=== PATIENT | female | born 1980 | race Caucasian/White ===

== ENCOUNTER 2017-04-12 14:29 | Emergency (ER) | payer BC ==
[2017-04-12 15:19] LABS: HEMOGLOBIN 12.2 gm/dl (12.3-15.3); RED BLOOD COUNT 4.4 M/UL (4.00-5.10); WHITE BLOOD COUNT 9.7 K/UL (4.5-11.0)
[2017-04-12 15:49] LABS: BUN/CREATININE RATIO 23 (0-10)
== END 2017-04-12 17:00 | disposition home or self-care (01) ==
LOC: ER1 14:29
PROVIDERS: Family Medicine
DX: R07.1 Chest pain on breathing (principal)
CPT/HCPCS: 36415; 71010; 80053; 82550; 82553; 83874; 84484; 85025; 85379; 93005; 96374; 99285; J1885

== ENCOUNTER → 2021-06-16 | Outpatient (CLI) | payer BC ==
[~2021-06-16] MED LIST: ZOFRAN ODT 4 MG4 MG PO
== END ==
LOC: MAMO 10:38
DX: Z12.31 Encounter for screening mammogram for malignant neoplasm of breast (principal)
CPT/HCPCS: 77063; 77067

== ENCOUNTER → 2021-07-14 | Outpatient (CLI) | payer BC | LOC: MAMO 13:30 | DX: R92.8 Other abnormal and inconclusive findings on diagnostic imaging of breast (principal); N63.22 Unspecified lump in the left breast, upper inner quadrant | CPT/HCPCS: 76641-LT; 77065 ==

== ENCOUNTER 2021-10-18 09:51 | Emergency (ER) | payer BC ==
[2021-10-18 12:06] LABS: HEMOGLOBIN 13.1 gm/dl (12.3-15.3); RED BLOOD COUNT 4.64 M/UL (4.00-5.10); WHITE BLOOD COUNT 7.3 K/UL (4.5-11.0)
[2021-10-18 12:31] LABS: BUN/CREATININE RATIO 22 (0-10)
[2021-10-18] MEDS ORDERED: NAPROSYN500 MG PO (15:22)
== END 2021-10-18 15:25 | disposition home or self-care (01) ==
LOC: ER1 09:51
PROVIDERS: Physician Assistant
DX: E27.9 Disorder of adrenal gland, unspecified (principal); K59.00 Constipation, unspecified
CPT/HCPCS: 80053; 81001; 83690; 84703; 85025; 96374; 99284; J1885; Q9967

== ENCOUNTER → 2021-11-03 | Outpatient (CLI) | payer BC ==
[~2021-11-03] MED LIST changes: +NAPROSYN500 MG PO
== END ==
LOC: CT 13:21
DX: E27.9 Disorder of adrenal gland, unspecified (principal); I10 Essential (primary) hypertension
CPT/HCPCS: 74170; Q9967

== ENCOUNTER → 2022-02-02 | Outpatient (CLI) | payer BC | LOC: MAMO 14:30 | DX: R92.8 Other abnormal and inconclusive findings on diagnostic imaging of breast (principal) | CPT/HCPCS: 76642-LT; 77065 ==